=== PATIENT | female | born 1985 | race Caucasian/White ===

== ENCOUNTER → 2016-11-11 | Outpatient (CLI) | payer BC ==
[~2016-11-11] MED LIST: OXYC5TAB PO; PRENTAB26 PO
== END | disposition home or self-care (01) ==
LOC: C.PAPS 10:22
PROVIDERS: ATTEND Obstetrics & Gynecology
DX: Z01.42 Encounter for cervical smear to confirm findings of recent normal smear following initial abnormal smear (principal)

== ENCOUNTER → 2017-05-17 | Outpatient (CLI) | payer BC | END | disposition home or self-care (01) | LOC: C.PAPS 09:52 | PROVIDERS: ATTEND Obstetrics & Gynecology | DX: N87.1 Moderate cervical dysplasia (principal) ==

== ENCOUNTER → 2017-07-13 | Outpatient (CLI) | payer BC ==
[2017-07-13 18:04] LABS: URINE APPEARANCE CLEAR (CLEAR); URINE BILIRUBIN NEG (NEG); URINE COLOR YELLOW; URINE EPITHELIAL CELL AUTO >30 /lpf (0-5); URINE NITRITE NEG (NEG); URINE PH 6.5 (4.5-7.5); URINE SPECIFIC GRAVITY 1.013 (1.000-1.030); UROBILINOGEN NEG (NEG)
[2017-07-13 18:11] LABS: MANUAL MICROSCOPIC REQUIRED? NO; REVIEW REQ? NO
== END | disposition home or self-care (01) ==
LOC: C.LABSPEC 17:41
PROVIDERS: ATTEND Obstetrics & Gynecology
DX: Z34.81 Encounter for supervision of other normal pregnancy, first trimester (principal)

== ENCOUNTER → 2017-11-15 | Outpatient (CLI) | payer BC ==
[~2017-11-15] MED LIST changes: +CEPH500C PO; +OXYC-57 PO
== END | disposition home or self-care (01) ==
LOC: C.LAB1850 17:07
PROVIDERS: ATTEND Obstetrics & Gynecology
DX: R31.9 Hematuria, unspecified (principal)

== ENCOUNTER 2017-11-21 11:35 | Emergency (ER) | payer BC ==
[~2017-11-21] VITALS: Ht 175.3 cm; Wt 96.7 kg
[~2017-11-21 11:35] MED LIST changes: -CEPH500C PO; -OXYC-57 PO
[2017-11-21 11:42] VITALS: TEMP 36.7; Ht 175.3 cm; Wt 96.7 kg
[2017-11-21] MEDS ORDERED: SODIUM CHLORIDE 0.9% 1000ML 1,000 ML IV STA (12:18)
[2017-11-21 13:01] LABS: BASO % 0.2 %; BASO ABS # 0.02 K/uL (0-0.2); EOS % 0.1 %; EOS ABS # 0.01 K/uL (0-0.5); HEMATOCRIT 32.5 % (37-47); HEMOGLOBIN 11.3 g/dL (12.0-16.0); IG# 0.03 K/uL (0.00-0.02); LYMPH % 7.2 %; LYMPH ABS # 0.79 K/uL (1.2-3.4); MEAN CORPUSCULAR HEMOGLOBIN 31.3 pg (25-34); MEAN CORPUSCULAR HGB CONC 34.8 g/dl (32-36); MEAN PLATELET VOLUME 10.7 fL (7.4-10.4); MONO ABS # 0.55 K/uL (0.11-0.59); NEUT % 87.2 %; NEUT ABS # 9.61 K/uL (1.4-6.5); PLATELET COUNT 195 K/uL (130-400); RED CELL DISTRIBUTION WIDTH CV 12.9 % (11.5-14.5); RED CELL DISTRIBUTION WIDTH SD 42.5 fL (36.4-46.3); WHITE BLOOD COUNT 11.01 K/uL (4.8-10.8)
[2017-11-21 13:03] LABS: ALBUMIN 2.9 gm/dl (3.4-5.0); CALCIUM 7.9 mg/dl (8.5-10.1); CREATININE 0.67 mg/dl (0.60-1.20); POTASSIUM 2.8 mmol/L (3.5-5.1)
[2017-11-21 13:06] LABS: TOTAL PROTEIN 6.6 gm/dl (6.4-8.2)
--- NOTE | 2017-11-21 13:23 | DIAGNOSTIC IMAGING REPORT ---
(RENAL)RETROPERITON COMP HISTORY: 32 years-old Female left flank pain, urinary frequency, ?hx stones acute left-sided flank pain with urinary frequency COMPARISON: Renal ultrasound 09/17/2015 TECHNIQUE: Multiple real-time sonographic images of the kidneys and urinary bladder were obtained assessing grayscale appearance and color flow FINDINGS: The right kidney measures 14 cm in length. There is mild right-sided hydronephrosis without obstructing stone or lesion identified. There are several subcentimeter renal calculi noted on the right. The bladder is only partially distended. Right ureteral jet is noted. Left kidney measures 13.5 cm in length and demonstrates mild hydroureteronephrosis without obstructing stone or lesion identified. Punctate nonshadowing echogenicities within the left kidney suggest nephrolithiasis. IMPRESSION: 1. Bilateral hydronephrosis with mild hydroureter seen on the left. 2. Punctate non-shadowing echogenicities of the bilateral kidneys suggest nephrolithiasis. 3. Partial distention of the urinary bladder with only the right ureteral jet identified. The above report was generated using voice recognition software. It may contain grammatical, syntax or spelling errors. Electronically signed by: Darvin Greenfield M.D. 11/21/2017 1:22 PM Dictated Date/Time: 11/21/2017 1:18 PM
[2017-11-21] MEDS ORDERED: ACETAMINOPHEN 500 MG TAB PO STA (14:27)
[2017-11-21] MEDS ORDERED: POTASSIUM CHLORIDE 20 MEQ TABCR PO STA (15:42)
[2017-11-21] MEDS ORDERED: POTASSIUM CHLORIDE 10 MEQ TABCR ONE (15:47)
[2017-11-21] MEDS ORDERED: CEPH500C PO (15:52)
[2017-11-21] MEDS ORDERED: OXYC-57 PO (15:52)
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
[2017-11-21 16:02] VITALS: BP 117/66; PULSE 79; O2SAT 99
== END 2017-11-21 16:02 | disposition home or self-care (01) ==
LOC: C.EDB 11:35 → C.EDC 16:02
DX: O99.89 Other specified diseases and conditions complicating pregnancy, childbirth and the puerperium (principal); O99.280 Endocrine, nutritional and metabolic diseases complicating pregnancy, unspecified trimester; Z3A.27 27 weeks gestation of pregnancy; R10.9 Unspecified abdominal pain; R31.9 Hematuria, unspecified; Z87.442 Personal history of urinary calculi

== ENCOUNTER → 2017-11-29 | Outpatient (CLI) | payer BC ==
[~2017-11-29] MED LIST changes: +CEPH500C PO; +OXYC-57 PO; -OXYC5TAB PO; -PRENTAB26 PO
[2017-11-29 17:34] LABS: HEMATOCRIT 33.8 % (37-47); HEMOGLOBIN 11.5 g/dL (12.0-16.0)
== END | disposition home or self-care (01) ==
LOC: C.LAB1850 16:34
PROVIDERS: ATTEND Obstetrics & Gynecology
DX: Z34.83 Encounter for supervision of other normal pregnancy, third trimester (principal)

== ENCOUNTER → 2018-01-24 | Outpatient (CLI) | payer BC ==
[~2018-01-24] MED LIST changes: -CEPH500C PO; +PEDICHW50 PO; +RANI150T85 PO
== END | disposition home or self-care (01) ==
LOC: C.LABSPEC 18:17
PROVIDERS: ATTEND Obstetrics & Gynecology
DX: O24.419 Gestational diabetes mellitus in pregnancy, unspecified control (principal)